=== PATIENT | male | born 1945 | race Caucasian/White ===

== ENCOUNTER 2017-01-11 15:17 | Emergency (ER) | payer OTHER ==
[~2017-01-11] VITALS: Ht 170.2 cm; Wt 63.5 kg
--- NOTE | ~2017-01-11 | EKG ---
[address] [address] ELECTROCARDIOGRAM REPORT Name: TEA HARRELL Dino 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1945 Requested By: Ronnie Jacques Order Number: [id number] MD: Yash Girard Measurements Intervals [place] Rate: 134 P: [place]: QRS: 55 QRSD: 75 T: 80 QT: 309 QTc: 462 Interpretive Statements Atrial fibrillation Low voltage, extremity leads Artifact in lead(s) I,II,III,aVR,aVL,aVF,V1 Compared to ECG 04/01/2010 23:55:35 Atrial fibrillation has replaced sinus tachycardia Electronically Signed On 01-11-2017 17:17:13 CDT by Cade Cerrato Electronically Signed On 01-11-2017 21:50:04 CDT by Yash Girard [email or web address] <ELECTRONICALLY SIGNED> By: Ysah Girard MD 01/11/17 2150 1544 1544 Yash Girard MD /EPI
--- NOTE | ~2017-01-11 | EKG ---
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1945 Requested By: Ronnie Jacques Order Number: [id number] MD: Yash Girard Measurements Intervals [place] Rate: 129 P: 0 [place]: 147 QRS: 26 QRSD: 100 T: 76 QT: 318 QTc: 466 Interpretive Statements Sinus tachycardia Paired ventricular premature complexes Borderline low voltage, extremity leads Minimal ST depression, anterolateral leads Artifact in lead(s) I,V1,V2,V3,V4,V5,V6 Compared to ECG 01/11/2017 15:44:53 Ventricular premature complex(es) now present ST (T wave) deviation now present Atrial fibrillation no longer present Electronically Signed On 01-11-2017 21:50:22 CDT by Yash Girard [email or web address] <ELECTRONICALLY SIGNED> By: Yash Girard MD 01/11/172149 56 56 Yash Girard MD /EPI
[~2017-01-11 15:17] MED LIST: ACETAMINOPHEN650 M5 RE; AMOXICILLIN/POTASSIU PO; ATENOLOL 25 MG25 M1 PO; MULTIVITAMINS PO; VALIUM5 MG PO
[2017-01-11 16:10] LABS: HEMATOCRIT 47.1 % (42.0-52.0); HEMOGLOBIN 15.6 gm/dL (14.0-18.0); MCH 30.5 pg (26.0-34.0); MCHC 33.2 g/dL (28.0-37.0); MCV 91.7 fL (80.0-100.0); PLATELET COUNT 328 thou/uL (150-400); RBC 5.13 mil/uL (4.50-6.00); RDW 14.3 % (10.5-14.5); WBC 13.4 thou/uL (4.0-11.0)
[2017-01-11 16:15] LABS: MANUAL DIFF YES
[2017-01-11 16:31] LABS: ABSOLUTE NEUTROPHILS 12.1 thou/uL (1.4-8.2); TOTAL CELL COUNT 100
[2017-01-11 17:26] LABS: ANION GAP 13 mmol/L (7-16); BUN 19 mg/dL (7-18); CALCIUM 9.1 mg/dL (8.5-10.1); CHLORIDE 92 mmol/L (98-107); CO2 22 mmol/L (21-32); CREATININE 0.8 mg/dL (0.7-1.3); GLUCOSE 116 mg/dL (74-106); POTASSIUM 3.4 mmol/L (3.5-5.1); SODIUM 127 mmol/L (136-145)
[2017-01-11 17:34] LABS: URINE BILIRUBIN NEGATIVE (Negative); URINE BLOOD NEGATIVE (Negative); URINE COLOR YELLOW; URINE GLUCOSE-RANDOM* NEGATIVE (Negative); URINE KETONES 2+ (Negative); URINE NITRITE NEGATIVE (Negative); URINE PROTEIN (DIPSTICK) NEGATIVE (Negative); URINE UROBILINOGEN 0.2 E.U./dl (0.2-1.0)
[2017-01-11 17:36] LABS: PROTIME 10.7 Seconds (9.3-11.4)
[2017-01-11 17:40] LABS: ALBUMIN 3.2 g/dL (3.4-5.0); ALKALINE PHOSPHATASE 94 U/L (46-116); SGOT 47 U/L (15-37); SGPT 24 U/L (30-65); TOTAL BILIRUBIN 0.9 mg/dL (<0.1-1.0); TOTAL PROTEIN 6.5 g/dL (6.4-8.2); TROPONIN-I < 0.04 ng/mL (<0.06)
[2017-01-11 21:03] VITALS: BP 88/41
== END 2017-01-11 21:00 | disposition short-term general hospital (02) ==
LOC: ER 15:17
PROVIDERS: Physician Assistant
DX: A41.9 Sepsis, unspecified organism (principal); R65.21 Severe sepsis with septic shock; S72.001A Fracture of unspecified part of neck of right femur, initial encounter for closed fracture; L03.116 Cellulitis of left lower limb; E87.1 Hypo-osmolality and hyponatremia; R00.0 Tachycardia, unspecified; M62.82 Rhabdomyolysis; I10 Essential (primary) hypertension; W18.39XA Other fall on same level, initial encounter; Y93.01 Activity, walking, marching and hiking; Y92.89 Other specified places as the place of occurrence of the external cause; Y99.8 Other external cause status

== ENCOUNTER 2017-10-29 22:28 | Emergency (ER) | payer OTHER ==
[~2017-10-29] VITALS: Ht 180.3 cm; Wt 63.5 kg
--- NOTE | ~2017-10-29 | EKG ---
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: : 1945 Requested By: Deborah Murillo Order Number: [id number] MD: Cade eCrrato Measurements Intervals [place] Rate: 109 P: 70 [place]: 185 QRS: -16 QRSD: 91 T: 58 QT: 347 QTc: 468 Interpretive Statements Sinus tachycardia Borderline left axis deviation Compared to ECG 01/11/2017 16:57:09 Atrial premature complexes no longer present Electronically Signed On 10-30-2017 7:50:06 CDT by Cade Cerrato [email or web address] <ELECTRONICALLY SIGNED> By: Cade Cerrato MD, [facility] 10/30/17 0750 D: 08/2236 36 Cade Cerrato MD, FACC /EPI
[2017-10-29] MEDS ORDERED: OSTEOPOROSIS MED IM (22:40)
[2017-10-29] MEDS ORDERED: ANUSOL-HC25 MG RECTAL (23:06)
[2017-10-29] MEDS ORDERED: CENTRUM SILVER1 EAC2 PO (23:07)
[2017-10-29] MEDS ORDERED: POTASSIUM20 PO (23:07)
[2017-10-29] MEDS ORDERED: IRON325 PO (23:07)
[2017-10-29 23:45] LABS: ABSOLUTE NEUTROPHILS 5.2 thou/uL (1.4-8.2); BASOPHILS 0.4 % (0.0-2.0); EOSINOPHILS 0.4 % (0.0-3.0); HEMATOCRIT 38.6 % (42.0-52.0); HEMOGLOBIN 13.4 gm/dL (14.0-18.0); LYMPHOCYTES 11.6 % (24.0-44.0); MCH 35.4 pg (26.0-34.0); MCHC 34.8 g/dL (28.0-37.0); MCV 101.6 fL (80.0-100.0); MONOCYTES 7.9 % (1.0-8.0); PLATELET COUNT 92 thou/uL (150-400); POLYS 79.7 % (36.0-66.0); RDW 14.2 % (10.5-14.5); WBC 6.5 thou/uL (4.0-11.0)
[2017-10-30 00:27] LABS: PLATELET ESTIMATE DECREASED
[2017-10-30 02:57] LABS: URINE BILIRUBIN 2+ (Negative); URINE BLOOD TRACE (Negative); URINE CLARITY CLEAR; URINE COLOR YELLOW; URINE GLUCOSE-RANDOM* NEGATIVE (Negative); URINE KETONES 3+ (Negative); URINE LEUKOCYTES NEGATIVE (Negative); URINE NITRITE NEGATIVE (Negative); URINE PROTEIN (DIPSTICK) 1+ (Negative)
[2017-10-30 03:03] LABS: ICTOTEST (BILI CONFIRMATORY) Positive (Negative)
[2017-10-30 03:06] LABS: AMP/METHAMP Negative (Negative); BARBITURATES Negative (Negative); BENZODIAZEPINES Negative (Negative); COCAINE Negative (Negative); METHADONE Negative (Negative); OPIATES Negative (Negative); PCP Negative (Negative)
[2017-10-30 03:11] LABS: CALCIUM 9.9 mg/dL (8.5-10.1); CREATININE 1.2 mg/dL (0.7-1.3); POTASSIUM 3.5 mmol/L (3.5-5.1)
[2017-10-30 03:13] LABS: BACTERIA None Seen /HPF (None Seen); CASTS None Seen /LPF (None Seen); CRYSTALS None Seen /LPF (None Seen); HYALINE CASTS 0-3 Few /LPF (None Seen); MUCUS None Seen strn/LPF (None Seen); SQUAMOUS 0-3 Few /LPF (0-3); URINE RBC 0-2 Rare /HPF (0-2); URINE WBC None Seen /HPF (0-5)
[2017-10-30 03:51] VITALS: BP 128/100
== END 2017-10-30 03:52 | disposition home or self-care (01) ==
LOC: ER 22:28
PROVIDERS: Emergency Medicine
DX: R44.1 Visual hallucinations (principal); D69.6 Thrombocytopenia, unspecified; R41.82 Altered mental status, unspecified; I10 Essential (primary) hypertension; Z96.652 Presence of left artificial knee joint

== ENCOUNTER 2018-01-02 01:57 | Emergency (ER) | payer OTHER ==
[~2018-01-02] VITALS: Ht 180.3 cm; Wt 68.0 kg
--- NOTE | ~2018-01-02 | EKG ---
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 : 1945 Requested By: Kaila Lester Order Number: [id number] MD: Cade Cerrato Measurements Intervals [place] Rate: 125 P: 0 [place]: 108 QRS: 14 QRSD: 87 T: 56 QT: 331 QTc: 478 Interpretive Statements Sinus tachycardia Multiple premature complexes, vent & supraven Low voltage, extremity leads Minimal ST depression Compared to ECG 10/29/2017 22:37:03 Ventricular and supraventricular ectopy is now present Electronically Signed On 01-02-2018 8:32:41 CDT by Cade Cerrato [email or web address] <ELECTRONICALLY SIGNED> By: Cade Cerrato MD, [facility] 01/02/18 0832 0429 0429 Cade Cerrato MD, [facility] /EPI
[~2018-01-02 01:57] MED LIST changes: +ANUSOL-HC25 MG RECTAL; +CENTRUM SILVER1 EAC2 PO; +IRON325 PO; +OSTEOPOROSIS MED IM; +POTASSIUM20 PO
[2018-01-02 02:39] LABS: HEMATOCRIT 33.4 % (42.0-52.0); HEMOGLOBIN 11.4 gm/dL (14.0-18.0); MCH 34.2 pg (26.0-34.0); MCV 100.6 fL (80.0-100.0); PLATELET COUNT 265 thou/uL (150-400); RBC 3.32 mil/uL (4.50-6.00); RDW 13.5 % (10.5-14.5); WBC 5.8 thou/uL (4.0-11.0)
[2018-01-02 02:46] LABS: CALCIUM 8.7 mg/dL (8.5-10.1); CREATININE 0.7 mg/dL (0.7-1.3); POTASSIUM 3.8 mmol/L (3.5-5.1)
[2018-01-02 02:52] LABS: ALBUMIN 3.5 g/dL (3.4-5.0); TOTAL BILIRUBIN 0.4 mg/dL (<0.1-1.0); TOTAL PROTEIN 6.8 g/dL (6.4-8.2)
[2018-01-02 03:11] LABS: ABSOLUTE NEUTROPHILS 3.1 thou/uL (1.4-8.2); ATYPICAL LYMPHS 1 %
[2018-01-02] MEDS ORDERED: TYLENOL EXTRA500 MG PO (03:57)
[2018-01-02 11:20] VITALS: BP 126/72
== END 2018-01-02 11:26 | disposition home or self-care (01) ==
LOC: ER 01:57
PROVIDERS: Student in an Organized Health Care Education/Training Program
DX: S42.031A Displaced fracture of lateral end of right clavicle, initial encounter for closed fracture (principal); F10.129 Alcohol abuse with intoxication, unspecified; D53.9 Nutritional anemia, unspecified; I10 Essential (primary) hypertension; Z96.652 Presence of left artificial knee joint; W18.39XA Other fall on same level, initial encounter; Y92.89 Other specified places as the place of occurrence of the external cause; Y93.89 Activity, other specified; Y99.8 Other external cause status